=== PATIENT | male | born 1960 | race Caucasian/White ===

== ENCOUNTER 2023-11-16 19:50 | Emergency (ER) | payer OTHER ==
[~2023-11-16] VITALS: Ht 180.3 cm; Wt 90.0 kg
[2023-11-16 19:50] VITALS: O2SAT 100
[2023-11-16 20:36] LABS: DIFFERENTIAL COMMENT 0; EOSINOPHILS % 7.3 % (0.0-5.0); LYMPHOCYTES % 26.1 % (20.0-50.0); MEAN CORPUSCULAR HEMOGLOBIN 28.3 pg (28.0-32.0); MEAN CORPUSCULAR HGB CONC 32.6 g/dL (31.0-37.0); MEAN CORPUSCULAR VOLUME 86.8 fL (80.0-94.0); MEAN PLATELET VOLUME 6.7 fl (7.4-10.4); MONOCYTES % 5.3 % (2.0-8.0); NEUTROPHILS % 60.3 % (40.0-76.0); PLATELET 486 x1000/uL (130-400); RED BLOOD CELL COUNT 2.32 mill/uL (4.7-6.1); RED CELL DISTRIBUTION WIDTH 14.4 % (11.6-14.6); WHITE BLOOD COUNT 7.5 x1000/uL (4.5-11.0)
[2023-11-16] MEDS: SODIUM CHLORIDE 0.9% 1,000 ML IV ONE (20:40)
[2023-11-16 20:41] LABS: HEMATOCRIT. 20.2 % (42.0-52.0); HEMOGLOBIN. 6.6 g/dL (14.0-18.0)
[2023-11-16 20:44] LABS: CALCIUM 8.3 mg/dL (8.7-10.4)
[2023-11-16 20:49] LABS: CREATININE 1.3 mg/dL (0.6-1.3)
[2023-11-16 20:56] LABS: INR 1.7; PROTHROMBIN TIME 18.2 sec (9.6-11.0)
[2023-11-16] MEDS ORDERED: PHYTONADIONE 10 MG in DEXTROSE 5% WATER 50 ML IV ONE (22:15)
[2023-11-17] MEDS ORDERED: PHYTONADIONE 10 MG in DEXTROSE 5% WATER 50 ML IV NR (01:15)
[2023-11-17 01:21] LABS: CLARITY URINE CLOUDY (CLEAR); COLOR URINE ORANGE (YELLOW); GLUCOSE URINE TRACE (NEGATIVE); KETONES URINE NEGATIVE (NEGATIVE); LEUKOCYTE ESTERASE URINE TRACE (NEGATIVE); NITRITE URINE NEGATIVE (NEGATIVE); OCCULT BLOOD URINE 3+ (NEGATIVE); PH URINE 7.5 (4.5-8.0); PROTEIN URINE 4+ (NEGATIVE); SPECIFIC GRAVITY URINE 1.025 (1.005-1.030)
[2023-11-17 01:25] LABS: RBC URINE TNTC /hpf (0-2); SQUAMOUS EPITHELIAL CELL URINE FEW /lpf (RARE/1+)
[2023-11-17 01:26] LABS: BACTERIA URINE 2+
[2023-11-17 02:00] VITALS: BP 137/84; PULSE 73; RESP 13; TEMP 98.6
== END 2023-11-17 03:24 | disposition short-term general hospital (02) ==
LOC: ER 19:50 → EDBD 19:50 → ER 11-17 03:24
DX: R31.0 Gross hematuria (principal); D64.9 Anemia, unspecified; I48.91 Unspecified atrial fibrillation; E11.9 Type 2 diabetes mellitus without complications; Z85.9 Personal history of malignant neoplasm, unspecified
CPT/HCPCS: 99291; 96360; 80048; 85025; 85610; 86850; 86900; 86901; 86920; 36415; 81003; J7030; 36430; J3430; J7060; P9016